=== PATIENT | male | born 1950 | race Caucasian/White ===

== ENCOUNTER → 2017-04-06 | Outpatient (CLI) | payer BC ==
[~2017-04-06] MED LIST: ASPI-435 PO; CHOL200010 PO; FESO4TAB PO; FINA5TAB PO; FLUO20CA35 PO; LABE1TAB28 PO; LOSA50TA6 PO; SIMV20TA5 PO; TAMS0.4C38 PO
== END | disposition home or self-care (01) ==
LOC: C.LABSPEC 14:46
PROVIDERS: ATTEND Internal Medicine
DX: Z12.11 Encounter for screening for malignant neoplasm of colon (principal)